=== PATIENT | female | born 1990 | race Caucasian/White ===

== ENCOUNTER 2018-04-22 18:30 | Inpatient (IN) | payer BC ==
[2018-04-22] MEDS ORDERED: Lactated Ringers 1,000 ML IV SCH ×2 (20:15→21:00)
[2018-04-22] MEDS ORDERED: Carboprost Tromethamine 250 MCG/1 ML Amp IM PRN ×2 (20:55)
[2018-04-22] MEDS ORDERED: Methylergonovine 0.2 MG/1 ML Amp IM PRN (20:55)
[2018-04-22] MEDS ORDERED: Zolpidem 5 MG Tab PO PRN (20:55)
[2018-04-22] MEDS ORDERED: Misoprostol 400 MCG (4 X 100 MCG TAB) RECTAL PRN ×2 (20:55)
[2018-04-22] MEDS ORDERED: Lidocaine 1% 30 ML SDV INJECT PRN (20:55)
[2018-04-22] MEDS ORDERED: Simethicone 80 MG Tab.Chew PO PRN (20:55)
[2018-04-22] MEDS ORDERED: Sodium Chloride 0.9% 10 ML Syringe FLUSH PRN (20:55)
[2018-04-22] MEDS ORDERED: Acetaminophen 325 MG Tab PO PRN (20:55)
[2018-04-22] MEDS ORDERED: Tranexamic Acid 1,000 MG in Sodium Chloride 0.9% 100 ML IV PRN ×4 (20:55)
[2018-04-22] MEDS ORDERED: Ondansetron 4 MG/2 ML SDV IV PRN (20:55)
[2018-04-22] MEDS ORDERED: Oxytocin 10 Units/1 ML SDV IM PRN (20:55)
[2018-04-22] MEDS ORDERED: Lactated Ringers 500 ML IV ONE (20:55)
[2018-04-22] MEDS ORDERED: Benzocaine/Menthol 20%-0.5% Spray 56 GM Canister TOP PRN (20:55)
[2018-04-22] MEDS ORDERED: Oxytocin/Normal Saline 30 UNIT/500 ML BAG IV SCH (21:00)
[2018-04-22] MEDS: Oxytocin/Normal Saline 30 UNIT/500 ML BAG IV SCH (21:31)
[2018-04-22] MEDS ORDERED: Bupivacaine 0.75%/D5W 2 ML Amp ONE (22:52)
[2018-04-22] MEDS ORDERED: fentaNYL 100 MCG/2 ML SDV ONE (22:53)
[2018-04-22] MEDS ORDERED: EPINEPHrine 1 MG/ML SDV ONE (22:53)
--- NOTE | 2018-04-22 23:27 | PCM.PRNOTE ---
- Free Text/Narrative Note: Requested to provide analgesia to full term patient in severe pain. Upon entering the room, patient is supine in bed complaining of severe abdominal/ pelvic pain and discomfort. Procedure was discussed with patient including adverse outcomes and expectations. Pt consented to analgesia, SAB/IT. Pt placed into a sitting position. Landmarks for SAB/IT were identified and marked. Hands were washed and appropriate PPE was applied. Back was prepped with betadine x3. A sterile, transparent, fenestrated drape was applied. Excess betadine was removed. Using 3 mL of a 1% lidocaine solution, a skin wheel was placed at the L3/L4 interspace. A 24 ga (4 inch) Pencan spinal needle was inserted until positive for CSF. Negative for heme or paresthesias. Injected fentanyl 30 mcg, sufentanil 25 mcg, and 12 mg of a 0.75% bupivacaine solution with an epi wash. Pt was placed left lateral position for approximately 20 minutes. There were zero complications or adverse outcomes. Will continue to monitor. Procedure Date & Time: 04/22/18 [id number]
--- NOTE | 2018-04-23 00:19 | HP ---
CHIEF COMPLAINT: "I'm in labor and my water broke." HISTORY OF PRESENT ILLNESS: Mrs. Alberto is a 27-year-old, 2, para 0-1-0- 0, female, last menstrual period 07/27/2017, EDC 05/03/2018, EGA 38 and 3/7 weeks' gestation, which is consistent with 1st trimester ultrasound and last menstrual period. She had a high-risk because she has had a previous delivery of twin at 22 weeks' gestation. She was diagnosed with incompetent cervix and had a cerclage done early 2nd trimester and also was on 17 hydroxyprogesterone caproate from 16 weeks until 36 weeks. She states for the past 3 weeks, she has been dilated to 2 once her cerclage was removed at 35 weeks' gestation. She states that she was at home walking around tonight at around 5:00 p.m., and she started leaking fluid. She is having some contractions. She denies any nausea, vomiting, or diarrhea. No fever or chills. No hematochezia, hematemesis, or hematuria. No dysuria, frequency, or urgency with urination. No leg pain, leg edema, or back pain. She is having some abdominal discomfort from the contractions, but they are mild at this point. On admission, she was noted to be 4 to 5 cm dilated, 80% effaced, -2 station. PAST MEDICAL HISTORY: She has no history of anemia, asthma, cancer, diabetes, hypertension, heart disease, seizure disorder, thyroid disorder, thromboembolic disease, breast lesions, or lung problems. FAMILY HISTORY: Positive for hypertension and some distant relatives with some cancer, but no genetic abnormalities in the family. No history of diabetes, heart disease, seizure disorder, lung or kidney problems. SOCIAL HISTORY: She denies any tobacco use, alcohol use, or illicit drug use. She lives in [place] with her , Jonnie. 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 PAST SURGICAL HISTORY: Cervical cerclage, early 2nd trimester. ALLERGIES: Amoxicillin with hives. MEDICATIONS: 1. vitamins. 2. Metamucil p.r.n. OBSTETRICAL HISTORY: On 01/26/2017 at 22 and 5/7 weeks' gestation. She had vaginal spontaneous delivery of twins, 1 boy and 1 girl. This was shortly after she was transferred from [place]. Baby A girl weighed 360 g. Baby B boy weighed 440 g. Both had scores of 1 at 1 minute, 1 at 5 minutes and shortly thereafter. LABORATORY DATA: Blood type O negative, antibody screen positive. I am guessing this is from [facility]. We will find out if it is not from that. Rubella immune. RPR nonreactive. Hepatitis B surface antigen nonreactive. HIV nonreactive. Hepatitis C antibody nonreactive. Group B strep vaginal culture positive. They were unable to isolate organism for susceptibilities, so she needs vancomycin because of her amoxicillin allergy. REVIEW OF SYSTEMS: All pertinent positive and negative review of systems per HPI. All other systems reviewed are negative. Ten point review of systems discussed with the patient. She has no issues. All other issues in the HPI. OBJECTIVE: General: Well-developed, well-nourished female, in no acute distress. Vital signs: Stable. Afebrile. HEENT: Unremarkable. Neck: Supple without adenopathy. No thyromegaly. Lungs: Clear to auscultation. No wheezing, rhonchi, or rales noted. Cardiovascular: Regular rate and rhythm without murmurs. Abdomen: Soft, gravid, nontender. Fundal height 38 cm. heart tones in the 130s to 140s, reactive strip, category 1 strip. Contractions anywhere from 3 to 5 minutes apart. Genitourinary: Cervix is 5 cm dilated. There is clear fluid noted to be leaking. There is a forebag noted. This is ruptured with an amnio hook with some more clear fluid noted, 80% effaced, -2 station, mid position, vertex presentation. Extremities: No edema, erythema, or tenderness noted. ASSESSMENT: 1. A 38 and 3/7 weeks' intrauterine . 2. Spontaneous rupture of membranes, clear fluid. 3. Active labor. 4. History of incompetent cervix. 5. History of delivery of twins in the past. She was on 17 hydroxyprogesterone caproate until 36 weeks' gestation. 6. Cerclage removal at 35 weeks' gestation. 7. Group B streptococcus positive with vancomycin being given for prophylaxis. 8. O negative blood type with history of positive antibody screen earlier in the now pending. PLAN: 1. Expect vaginal delivery. 2. We will start Pitocin augmentation as needed. 3. The patient desires intrathecal anesthesia. 4. All questions answered. [facility] /[id number] CHRISTOPHE
[2018-04-23] MEDS: Oxytocin/Normal Saline 30 UNIT/500 ML BAG IV SCH (02:43)
[2018-04-23] MEDS ORDERED: Acetaminophen 325 MG Tab PO PRN (03:20)
[2018-04-23] MEDS ORDERED: oxyCODONE 5 MG Tab PO PRN (03:23)
--- NOTE | 2018-04-23 04:50 | DEL ---
DATE: 04/23/2018 PREDELIVERY DIAGNOSES: 1. Thirty eight and 4/7 weeks' intrauterine . 2. Spontaneous rupture of membranes, clear fluid. 3. Active labor. 4. History of incompetent cervix. 5. Group B Streptococcus vaginal culture positive, treated with vancomycin. 6. O-negative blood type with positive antibody screen. 7. Pitocin augmentation. 8. Deep variable decelerations during second stage labor. POSTOPERATIVE DIAGNOSES: 1. Thirty eight and 4/7 weeks' intrauterine . 2. Spontaneous rupture of membranes, clear fluid. 3. Active labor. 4. History of incompetent cervix. 5. Group B Streptococcus vaginal culture positive, treated with vancomycin. 6. O-negative blood type with positive antibody screen. 7. Pitocin augmentation. 8. Deep variable decelerations during second stage labor. 9. Low vacuum-assisted vaginal delivery of a viable male infant, weighing 6 pounds 14 ounces (3125 g) with scores of 6 at 1 minute and 8 at 5 minutes at 0210 hours on 04/23/2018. 10.Tight nuchal cord x1. PROCEDURE: Low vacuum-assisted vaginal delivery. ESTIMATED BLOOD LOSS: 450 mL. FLUIDS: Crystalloids/LR. DRAINS: None. PATHOLOGY: None. ANESTHESIA: Intrathecal. COMPLICATIONS: Right vaginal sidewall laceration. FINDINGS: Viable male infant, weighing 6 pounds 14 ounces with scores of 6 at 1 minute and 8 at 5 minutes. Very tight nuchal cord. INDICATIONS FOR PROCEDURE: The patient is a 27-year-old 2, para 0-1-0-0 female, who reported to Labor and Delivery at 38 and 3/7 weeks' gestation, dilated to 4 to 5 cm, with spontaneous rupture of membranes, clear fluid. After admission, because of the group B Strep vaginal culture positive, she was given vancomycin 1 g IV, because she was allergic to amoxicillin. She changed to approximately 5 cm couple hours later, so Pitocin augmentation was started. She tolerated the labor quite well. She was afebrile. Vital signs were stable. Once she started noe and becoming uncomfortable and she was 7 cm dilated, intrathecal anesthesia was accomplished. Once the patient got to complete, she was noted to have some deep variable decelerations along with deep variable decelerations while she was pushing. Because the decelerations were becoming a little prolonged, when the head was at a +2 station, I placed a Kiwi vacuum on the vertex. The head was OA, +2 station. With 4 pushes, 4 pulls with the vacuum, with 3 contractions, and with the pressure at 25 cmHg, the head was delivered. There was noted to be a very tight nuchal cord, so tight I could not reduce it, so I just delivered the rest of the infant over a second-degree midline perineal laceration. Once the was delivered, the cord was reduced and released from around the neck. The cord was clamped and cut. The infant was handed off to the nurses in attendance. Cord blood was obtained. The placenta was then delivered by simple expression intact. The labia, vagina, and cervix were inspected. There was noted to be a long right vaginal sidewall laceration and a second-degree midline perineal laceration. These were repaired with 2-0 Vicryl suture and 3-0 Vicryl suture. The rectum was checked and there were no sutures noted. The patient tolerated the entire procedure quite well. All sponges, needle, and instrument counts were correct by the nurse in attendance x2. The patient received vancomycin 1 g on admission for group B Strep vaginal culture positive prophylaxis. The infant did quite well and stayed with his mother, and started breast-feeding. She was given Pitocin IV to help firm the uterus after delivery. She had minimal lochia. No other complications occurred. [facility] /[id number]
[2018-04-23] MEDS: Ibuprofen 800 MG Tab PO PRN ×3 (04:55→23:03)
[2018-04-23] MEDS ORDERED: Prenatal Multivitamin with Calcium/Folic Acid/Iron Tab PO SCH (09:00)
[2018-04-23] MEDS: Docusate Sodium 100 MG Cap PO PRN ×2 (09:25→21:26)
[2018-04-23] MEDS: Ferrous Sulfate 325 MG Tab PO SCH ×2 (09:26→18:07)
[2018-04-23] MEDS: Prenatal Multivitamin with Calcium/Folic Acid/Iron Tab PO SCH (09:26)
[2018-04-23] MEDS: Acetaminophen 325 MG Tab PO PRN ×3 (09:29→21:26)
[2018-04-24] MEDS: Acetaminophen 325 MG Tab PO PRN ×4 (05:56→23:03)
[2018-04-24] MEDS: Prenatal Multivitamin with Calcium/Folic Acid/Iron Tab PO SCH (08:21)
[2018-04-24] MEDS: Ferrous Sulfate 325 MG Tab PO SCH ×2 (08:21→18:25)
--- NOTE | 2018-04-24 10:22 | PN ---
DATE: 04/24/2018 SUBJECTIVE: Sisi is a 27-year-old woman who delivered vaginally early in the morning, yesterday, 04/23/2018. Unfortunately, she did sustain a vaginal wall tear which has been quite painful for her. She is able to ambulate around without too much difficulty, however. is going well. Baby is not coming around and latching on well. OBJECTIVE: Vital Signs: Stable. She is afebrile. General: Sisi is a pleasant 27-year-old woman in no acute distress. Heart: Regular rate and rhythm. No murmurs, rubs, or gallops. ASSESSMENT: 1. day #1, status post vaginal delivery. 2. Second-degree long vaginal sidewall tear. PLAN: Her and her are deciding whether they want to go home today. That would be appropriate for them to be discharged home today if that is their wish. [facility] /[id number]
[2018-04-24] MEDS: Ibuprofen 800 MG Tab PO PRN ×2 (11:37→20:06)
[2018-04-24] MEDS: Docusate Sodium 100 MG Cap PO PRN ×2 (11:39→21:24)
[2018-04-24] MEDS ORDERED: EPINEPHrine 1 MG/ML SDV ONE (15:00)
[2018-04-24] MEDS ORDERED: Bupivacaine 0.75%/D5W 2 ML Amp ONE (15:00)
[2018-04-24] MEDS ORDERED: fentaNYL 100 MCG/2 ML SDV ITHECAL ONE (15:00)
[2018-04-25] MEDS: Ibuprofen 800 MG Tab PO PRN (06:32)
[2018-04-25] MEDS: Prenatal Multivitamin with Calcium/Folic Acid/Iron Tab PO SCH (09:13)
[2018-04-25] MEDS: Docusate Sodium 100 MG Cap PO PRN (09:13)
[2018-04-25] MEDS: Ferrous Sulfate 325 MG Tab PO SCH (09:13)
== END 2018-04-25 13:10 | disposition home or self-care (01) | DRG 560 ==
LOC: DL.OBCHECK 18:30 → DL.OB 19:41 → UNDOADMOB 19:41 → DL.OB 20:56 → OBSVTOIN 04-23 02:10
PROVIDERS: ADMIT Obstetrics & Gynecology; ATTEND Obstetrics & Gynecology
PROC: 10D07Z6 Extraction of Products of Conception, Vacuum, Via Natural or Artificial Opening (ICD-10-PCS; principal; 2018-04-23)
PROC: 0KQM0ZZ Repair Perineum Muscle, Open Approach (ICD-10-PCS; 2018-04-23)
PROC: 3E0S3GC Introduction of Other Therapeutic Substance into Epidural Space, Percutaneous Approach (ICD-10-PCS; 2018-04-23)
DX: O76 Abnormality in fetal heart rate and rhythm complicating labor and delivery (principal); O42.02 Full-term premature rupture of membranes, onset of labor within 24 hours of rupture; Z3A.38 38 weeks gestation of pregnancy; Z37.0 Single live birth; O70.1 Second degree perineal laceration during delivery; O99.824 Streptococcus B carrier state complicating childbirth; O34.33 Maternal care for cervical incompetence, third trimester; Z88.2 Allergy status to sulfonamides; O69.81X0 Labor and delivery complicated by cord around neck, without compression, not applicable or unspecified
CPT/HCPCS: 36415; 36430; 59025; 59300; 59409; 85027; 85460; 86850; 86870; 86900; 86901; A9270-GY; J0171; J2405; J2590; J2790; J3010; J3370; J7050; J7120

== ENCOUNTER 2018-12-22 20:30 | Emergency (ER) | payer BC ==
--- NOTE | 2018-12-22 20:41 | EDM.PDOC ---
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 states started spotting Monday then got heavier since Monday at pad not soaked Q 2 hours. not getting better and no cramps. [id number] (miscarriage). 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 Fatima Social & Family History - Family History Family Medical History: Noncontributory - Caffeine Use Caffeine Use: Reports: Coffee ED ROS GENERAL - Review of Systems Review Of Systems: ROS reveals no pertinent complaints other than HPI. ED EXAM - Physical Exam Exam: See Below Exam Limited By: No Limitations General Appearance: Alert, WD/WN, No Apparent Distress. No: Active Emesis Ears: Hearing Grossly Normal Throat/Mouth: Normal Voice, No Airway Compromise Head: Atraumatic Neck: Non-Tender, Full Range of Motion Respiratory/Chest: No Respiratory Distress Cardiovascular: Regular Rate, Rhythm GI/Abdominal Exam: Soft Neurological: Alert, Oriented, Normal Cognition, Normal Gait, No Motor/Sensory Deficits Psychiatric: Normal Affect, Normal Mood Skin Exam: Warm, Dry, Normal Color Lymphatic: No Adenopathy Course - Vital Signs Last Recorded V/S: Last Vital Signs Temp 37.5 C 12/22/18 20:40 Pulse 86 12/22/18 20:40 Resp 18 12/22/18 20:40 BP 132/77 12/22/18 20:40 Pulse Ox 100 12/22/18 20:40 - Orders/Labs/Meds Orders: Active Orders 24 hr Category Date Time Status OB Transvaginal [US] Urgent Exams 12/22/18 21:54 Taken Labs: Laboratory Tests 12/22/18 12/22/18 12/22/18 Range/Units 20:48 20:48 20:48 WBC 8.4 (5.0-10.0) 10^3/uL RBC 4.67 (4.2-5.4) 10^6/uL Hgb 12.5 D (12.0-16.0) g/dL Hct 38.9 (37.0-47.0) % MCV 83.3 D (80-100) fL MCH 26.8 L (27.0-34.0) pg MCHC 32.1 L (33.0-35.0) g/dL Plt Count 300 (150-450) 10^3/uL Neut % (Auto) 51.4 (42.2-75.2) % Lymph % (Auto) 39.3 (20.5-50.1) % [place] % (Auto) 8.2 H (2-8) % Eos % (Auto) 0.7 L (1.0-3.0) % Baso % (Auto) 0.4 (0.0-1.0) % Add Manual Diff Yes Neutrophils % (Manual) 48 (42-75) % Lymphocytes % (Manual) 48 (20-50) % Monocytes % (Manual) 3 (2-8) % Eosinophils % (Manual) 1 (1-3) % Sodium 137 (135-145) mmol/L Potassium 3.5 L (3.6-5.0) mmol/L Chloride 102 (101-111) mmol/L Carbon Dioxide 24.0 (21.0-31.0) mmol/L Anion Gap 14.5 BUN 9 (7-18) mg/dL Creatinine 0.6 (0.6-1.3) mg/dL Est Cr Clr Drug Dosing 134.54 mL/min Estimated GFR (MDRD) > 60 BUN/Creatinine Ratio 15.00 Glucose 67 L (74-105) mg/dL Calcium 9.3 (8.4-10.2) mg/dl Total Bilirubin 0.8 (0.2-1.0) mg/dL AST 21 (10-42) IU/L ALT 15 (10-60) IU/L Alkaline Phosphatase 83 (42-121) IU/L Total Protein 8.1 (6.7-8.2) g/dl Albumin 4.3 (3.2-5.5) g/dl Globulin 3.8 Albumin/Globulin Ratio 1.13 HCG, Quant > 1359 H (0-25) mIU/ml Beta HCG, Quant 23777 mIU/ml Meds: Medications Discontinued Medications Generic Name Dose Route Start Last Admin Trade Name Ari PRN Reason Stop Dose Admin Sodium Chloride 1,000 mls @ 500 mls/hr 12/22/18 20:43 12/22/18 20:48 Normal Saline IV 12/22/18 22:42 500 mls/hr .BOLUS ONE Administration - Re-Assessments/Exams Free Text/Narrative Re-Assessment/Exam: 12/23/18 00:07 results discussed with pt who is fine presently Departure - Departure Time of Disposition: 00:07 Disposition: Home, Self-Care 01 Condition: Good Clinical Impression: First trimester bleeding - Discharge Information Instructions: Vaginal Bleeding During , First Trimester Forms: ED Department Discharge Additional Instructions: 1) rest and avoid bending straining lifting 2) follow up with family doctor Monday 3) recheck if there is any change or concern - My Orders Last 24 Hours: My Active Orders 12/22/18 21:54 OB Transvaginal [US] Urgent - Assessment/Plan Last 24 Hours: My Active Orders 12/22/18 21:54 OB Transvaginal [US] Urgent
[2018-12-22] MEDS ORDERED: Sodium Chloride 0.9% 1,000 ML IV ONE (20:43)
[2018-12-22 21:17] LABS: ANION GAP 14.5; CHLORIDE,CL 102 mmol/L (101-111); SODIUM,NA 137 mmol/L (135-145)
== END 2018-12-23 00:25 | disposition home or self-care (01) ==
LOC: DL.ED 20:30
DX: O20.8 Other hemorrhage in early pregnancy (principal); Z88.1 Allergy status to other antibiotic agents; Z79.899 Other long term (current) drug therapy; Z87.59 Personal history of other complications of pregnancy, childbirth and the puerperium; Z3A.01 Less than 8 weeks gestation of pregnancy
CPT/HCPCS: 36415; 76817; 80053; 84702; 85025; 96365; 96366; 99284; J7030

== ENCOUNTER 2018-12-23 15:21 | Emergency (ER) | payer BC ==
[2018-12-23] MEDS ORDERED: Misoprostol 100 MCG Tab PO ONE ×2 (15:22→18:20)
--- NOTE | 2018-12-23 16:17 | EDM.PDOC ---
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 She states bleeding on 12/22/18 began to be brighter and increased in amount. She states she was seen in the ER last night and an ultrasound was performed. Still showed an intrauterine of 6 weeks, 3 days with no heartbeat. Pt states LMP was 10/08/18. Patient states she also lost twins a few years ago at 22 weeks. Patient states she was in [employer] today with her and had a gush of blood. She states she soaked the first pad within 5 min, passed golf ball size clot. Denies seeing any tissue. Denies fever, chills, N/V, dizziness. Does admit to some on and off cramping. Onset: Gradual Abdomen Pain Score (Numeric/FACES): 2 - Related Data Allergies Allergy/AdvReac Type Severity Reaction Status Date / Time amoxicillin Allergy Cannot Verified 12/23/18 15:59 Remember Home Meds: Home Meds Vit with Ca/FA/Iron [ Plus Iron] 1 tab PO DAILY 04/22/18 [ History] Docusate Sodium [Colace] 100 mg PO BID PRN #28 cap 04/25/18 [Rx] Ibuprofen [Motrin] 800 mg PO Q8H PRN tablet 04/25/18 [Rx] Ferrous Sulfate [Iron] 325 mg PO DAILY 12/23/18 [History] Past Medical History HEENT History: Reports: Other (See Below) Other HEENT History: glasses Cardiovascular History: Reports: None Respiratory History: Reports: None Gastrointestinal History: Reports: None Genitourinary History: Reports: None PACK TRAIN DRIVER History: Reports: Spontaneous , Other (See Below) Other PACK TRAIN DRIVER History: 22 week gestation twin loss Musculoskeletal History: Reports: None Neurological History: Reports: None Psychiatric History: Reports: None Endocrine/Metabolic History: Reports: None Hematologic History: Reports: Anemia Immunologic History: Reports: None Oncologic (Cancer) History: Reports: None Dermatologic History: Reports: Eczema - Infectious Disease History Infectious Disease History: Reports: None - Past Surgical History Head Surgeries/Procedures: Reports: None Female Surgical History: Reports: Other (See Below) Other Female Surgeries/Procedures: cerclauge with this removed at [address] Fatima Social & Family History - Family History Family Medical History: Noncontributory - Tobacco Use Smoking Status *Q: Former Smoker Years of Tobacco use: 2 Packs/Tins Daily: 0.5 Used Tobacco, but Quit: Yes Month/Year Tobacco Last Used: september Second Hand Smoke Exposure: No - Caffeine Use Caffeine Use: Reports: Coffee, Soda - Recreational Drug Use Recreational Drug Use: No ED ROS GENERAL - Review of Systems Review Of Systems: ROS reveals no pertinent complaints other than HPI. ED EXAM - Physical Exam Exam: See Below Exam Limited By: No Limitations General Appearance: Alert, WD/WN, No Apparent Distress Eye Exam: Bilateral Eye: EOMI, Normal Inspection Ears: Normal External Exam, Hearing Grossly Normal Nose: Normal Inspection Throat/Mouth: Normal Inspection, Normal Voice, No Airway Compromise Head: Atraumatic, Normocephalic Neck: Normal Inspection, Supple, Non-Tender, Full Range of Motion Respiratory/Chest: No Respiratory Distress, Lungs Clear, Normal Breath Sounds, No Accessory Muscle Use, Chest Non-Tender Cardiovascular: Normal Peripheral Pulses, Regular Rate, Rhythm, No Edema, No Gallop, No JVD, No Murmur, No Rub GI/Abdominal Exam: Normal Bowel Sounds, Soft, No Organomegaly, No Distention, No Abnormal Bruit, No Mass, Tender Rectal Exam: Deferred (Female) Exam: Other (performed by Dr. Rosas) Back Exam: Normal Inspection, Full Range of Motion, NT Extremities: Normal Inspection, Normal Range of Motion, Non-Tender, Normal Capillary Refill, No Pedal Edema Neurological: Alert, Oriented, CN II-XII Intact, Normal Cognition, Normal Gait, Normal Reflexes, No Motor/Sensory Deficits Psychiatric: Normal Affect, Normal Mood, Anxious, Tearful Skin Exam: Warm, Dry, Intact, Normal Color, No Rash Lymphatic: No Adenopathy Course - Vital Signs Last Recorded V/S: Last Vital Signs Temp 98.3 F 12/23/18 15:43 Pulse 98 12/23/18 15:43 Resp 16 12/23/18 15:43 BP 135/73 12/23/18 15:43 Pulse Ox 100 12/23/18 15:43 - Orders/Labs/Meds Labs: Laboratory Tests 12/23/18 12/23/18 12/23/18 Range/Units 16:45 16:45 18:34 WBC 6.6 (5.0-10.0) 10^3/uL RBC 4.47 (4.2-5.4) 10^6/uL Hgb 12.0 (12.0-16.0) g/dL Hct 37.2 (37.0-47.0) % MCV 83.2 (80-100) fL MCH 26.8 L (27.0-34.0) pg MCHC 32.3 L (33.0-35.0) g/dL Plt Count 303 (150-450) 10^3/uL Neut % (Auto) 64.4 (42.2-75.2) % Lymph % (Auto) 27.7 (20.5-50.1) % [place] % (Auto) 7.0 (2-8) % Eos % (Auto) 0.6 L (1.0-3.0) % Baso % (Auto) 0.3 (0.0-1.0) % Sodium 136 (135-145) mmol/L Potassium 3.9 (3.6-5.0) mmol/L Chloride 104 (101-111) mmol/L Carbon Dioxide 23.0 (21.0-31.0) mmol/L Anion Gap 12.9 BUN 7 (7-18) mg/dL Creatinine 0.6 (0.6-1.3) mg/dL Est Cr Clr Drug Dosing 134.54 mL/min Estimated GFR (MDRD) > 60 BUN/Creatinine Ratio 11.66 Glucose 101 (74-105) mg/dL Calcium 8.9 (8.4-10.2) mg/dl Total Bilirubin 1.2 H (0.2-1.0) mg/dL AST 19 (10-42) IU/L ALT 15 (10-60) IU/L Alkaline Phosphatase 70 (42-121) IU/L Total Protein 7.3 (6.7-8.2) g/dl Albumin 4.0 (3.2-5.5) g/dl Globulin 3.3 Albumin/Globulin Ratio 1.21 Blood Type (Referred) O neg Blood Type O NEGATIVE Gel Antibody Screen Negative Rhogam Indicated Yes Blood Bank Comment Not Reportable Meds: Medications Discontinued Medications Generic Name Dose Route Start Last Admin Trade Name Ari PRN Reason Stop Dose Admin Ketorolac Tromethamine 60 mg 12/23/18 18:29 12/23/18 18:38 Toradol IM 12/23/18 18:30 60 mg ONETIME ONE Administration Misoprostol 200 mcg 12/23/18 18:20 12/23/18 18:33 Cytotec PO 12/23/18 18:21 200 mcg ONETIME ONE Administration Misoprostol Confirm 12/23/18 18:26 12/23/18 18:35 Cytotec Administered 12/23/18 18:27 Not Given Dose 400 mcg .ROUTE .K-MED ONE - Radiology Interpretation Free Text/Narrative:: US from 12/22/18: IMPRESSION: 1. Well-defined pole noted within the fundus of the uterus corresponding to an early intrauterine of approximately 6 weeks 3 days. 2. I could not document cardiac activity at this point and a follow up study in one week is suggested to evaluate for possible intrauterine demise Thank you for allowing us to participate in the care of your patient. Dictated and Authenticated by: Cm Mcnamara MD 12/22/2018 11:46 PM Central Time ([place] & [place]) See rad report - Re-Assessments/Exams Free Text/Narrative Re-Assessment/Exam: 12/25/18 01:40 Dr. Rosas was called to consult with the patient. He presented to the ER and performed the vaginal exam. Tissue/fetus was found outside the cervix (as stated by Dr. Rosas). This was sent to pathology. Departure - Departure Time of Disposition: 20:15 Disposition: Home, Self-Care 01 Condition: Fair Clinical Impression: Complete - Discharge Information *PRESCRIPTION DRUG MONITORING PROGRAM REVIEWED*: No *COPY OF PRESCRIPTION DRUG MONITORING REPORT IN PATIENT LANDON: No Instructions: Miscarriage, [id number] Referrals: PCP,None [Ordering Only Provider] - Forms: ED Department Discharge Additional Instructions: Drink plenty of fluids Take Cytotec in the morning Follow up with Dr. Reese
[2018-12-23 17:10] LABS: ANION GAP 12.9; CHLORIDE,CL 104 mmol/L (101-111); SODIUM,NA 136 mmol/L (135-145)
[2018-12-23] MEDS ORDERED: Misoprostol 400 MCG (4 X 100 MCG TAB) ONE (18:26)
[2018-12-23] MEDS ORDERED: Ketorolac 30 MG/ML SDV IM ONE (18:29)
--- NOTE | 2018-12-24 01:37 | HP ---
CHIEF COMPLAINT: "I am having a miscarriage." HISTORY OF PRESENT ILLNESS: Ms. Alberto is a 28-year-old 3, para 1-1-0-1 female who reports to the emergency department at [facility] in [facility] because of active bleeding with blood clots and pain in her pelvis. She was seen yesterday in the emergency department here and was noted to have a 6 week 3 day fetus with no cardiac activity, and she was planning on passing this on her own, but then the bleeding got a lot worse and she just could not tolerate it, so came back into the emergency department today. She denies any nausea, vomiting, or diarrhea. No fever or chills. No hematochezia, hematemesis, or hematuria. No dysuria, frequency, or urgency with urination. No leg pain, leg edema, or back pain. She is having pain in the pelvis that comes and goes, "like contractions." She is having bleeding with blood clots noted. She denies any dizziness or lightheadedness. PAST MEDICAL HISTORY: She has history of eczema and anemia. She denies any cancer, diabetes, hypertension, heart disease, seizure disorder, thyroid disorder, thromboembolic disease, breast lesions, or blood transfusions. FAMILY HISTORY: Positive for hypertension in distant relatives with cancer. No diabetes, seizure disorder, or thyroid disorder. SOCIAL HISTORY: She denies any tobacco use, alcohol use, or illicit drug use. She is to Jonnie Alberto, and they live in [place]. PAST SURGICAL HISTORY: She has a cervical cerclage placed in the second trimester of her second . OBSTETRICAL HISTORY: Her first , 01/26/2017, delivery of twins at 22- 5/7th weeks' gestation. Baby A was a boy, 360 g with Apgars of 1 and 1. Baby B was a girl, weighing 440 g with Apgars of 1 and 5. Both shortly after delivery. MEDICATIONS: vitamins, Colace, ibuprofen, and ferrous sulfate. ALLERGIES: Amoxicillin causes hives. SOCIAL HISTORY: She denies any tobacco use, alcohol use, or illicit drug use. She lives in [place] with her , Jonnie. LABORATORY DATA: Blood type is O-negative. CBC: WBC 6.6, hemoglobin 12.0, hematocrit 37.2, and platelet count 303,000. Potassium 3.9, glucose 101. On 12/22/2018, WBC 8.4, hemoglobin 12.5, hematocrit 38.9, and platelet count 300,000. Potassium 3.5, glucose 67. Quantitative hCG 19,719. Ultrasound on 12/22/2018: 6-3/7 weeks' intrauterine with no cardiac activity seen. Ultrasound done today on 12/23/2018 shows an empty uterus. No intrauterine seen. REVIEW OF SYSTEMS: All pertinent positive and negative review of systems per the HPI. All other systems reviewed are negative. A 10-point review of systems discussed with the patient. She has no issues other than what was in the HPI. OBJECTIVE: General: Well-developed, well-nourished female in no acute distress. Vital Signs: Stable. Afebrile. Blood pressure 135/73, pulse 98, respirations 16, temperature 98.3, and O2 saturation 100%. HEENT: Unremarkable. Neck: Supple, without adenopathy. No thyromegaly. Lungs: Clear to auscultation. No wheezing, rhonchi, or rales noted. Cardiovascular: Regular rate and rhythm without murmurs. Abdomen: Soft; slightly tender in the pelvis but no rigidity, rebound tenderness, or peritoneal signs noted. Back: No CVA tenderness. Genitourinary: She has large amounts of blood and blood clots in the vagina. These are all cleansed. There is tissue at the opening of the cervix. This is grasped with a ring forceps and teased out slowly, and the entire tissue that is teased out is sent to pathology. After this is removed, the cervix shows minimal amounts of bleeding and closed up quite nicely. The entire vagina is cleansed and dried with minimal bleeding afterwards. Bimanual examination: No masses, fullness, or tenderness noted. She has approximately an 8-week size uterus noted. Extremities: No edema, erythema, or tenderness noted. ASSESSMENT: 1. First trimester spontaneous - complete. 2. History of delivery in the past. 3. History of incompetent cervix in the past. 4. O-negative blood type. PLAN: 1. The patient to get RhoGAM 300 mcg before leaving in the emergency department. 2. Cytotec 200 mcg given orally before she leaves the hospital, then she will take this again tomorrow morning when she wakes. 3. Toradol 60 mg IM now. 4. Ibuprofen and Tylenol at home p.r.n. for cramping and discomfort. 5. The patient to follow up with Dr. Reese within the next 2 weeks unless she has issues before then, she will contact our office sooner. 6. All questions answered. [facility] /[id number]
== END 2018-12-23 20:15 | disposition home or self-care (01) ==
LOC: DL.ED 15:21
DX: O03.9 Complete or unspecified spontaneous abortion without complication (principal); Z79.899 Other long term (current) drug therapy; Z87.891 Personal history of nicotine dependence; Z87.59 Personal history of other complications of pregnancy, childbirth and the puerperium
CPT/HCPCS: 36415; 76817; 80053; 85025; 86850; 86900; 86901; 96372; 99284; A9270; J1885; J2790

== ENCOUNTER 2021-04-16 08:26 | Inpatient (IN) | payer BC ==
--- NOTE | 2021-04-16 08:29 | EDM.PDOC ---
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 /2-0/L1 at 10wks gestation with known demise. History of one spont. Ab 1st tri. and 22wk demise of twin preg. Patient arrives with complaints of increased bleeding, passage of large amount of tissue at home this morning, and did bring it in with her. Now has heavy bleeding and cramping. She has seen Dr. Reese this week on Monday. Pt has documented blood type of O Neg. Onset: Today Duration: Constant Location: Reports: Abdomen, Pelvis Quality: Reports: Ache, Other (Cramping) Severity: Moderate Improves with: Reports: None Worsens with: Reports: None Associated Symptoms: Reports: No Other Symptoms - Related Data Allergies Allergy/AdvReac Type Severity Reaction Status Date / Time amoxicillin Allergy Cannot Verified 04/16/21 08:45 Remember Home Meds: Home Meds Vit with Ca/FA/Iron [ Plus Iron] 1 tab PO DAILY 04/22/18 [History] Docusate Sodium [Colace] 100 mg PO BID PRN #28 cap 04/25/18 [Rx] Past Medical History HEENT History: Reports: Other (See Below) Other HEENT History: glasses Cardiovascular History: Reports: None Respiratory History: Reports: None Gastrointestinal History: Reports: None Genitourinary History: Reports: None FURNITURE DESIGNER History: Reports: (*Blood Type O Negative), Spontaneous , Other (See Below) : 4 Para: 1 LMP (Approximate): (10 weeks as of 04/16/21) Other FURNITURE DESIGNER History: 22 week gestation twin loss Musculoskeletal History: Reports: None Neurological History: Reports: None Psychiatric History: Reports: None Endocrine/Metabolic History: Reports: None Hematologic History: Reports: Anemia Immunologic History: Reports: None Oncologic (Cancer) History: Reports: None Dermatologic History: Reports: Eczema - Infectious Disease History Infectious Disease History: Reports: None - Past Surgical History Head Surgeries/Procedures: Reports: None Female Surgical History: Reports: Other (See Below) Other Female Surgeries/Procedures: cerclauge with this removed at [address] Fatima Social & Family History - Family History Family Medical History: No Pertinent Family History - Caffeine Use Caffeine Use: Reports: Coffee, Soda - Living Situation & Occupation Living situation: Reports: , with Family ED ROS GENERAL - Review of Systems Review Of Systems: Comprehensive ROS is negative, except as noted in HPI. ED EXAM - Physical Exam Exam: See Below Exam Limited By: No Limitations General Appearance: Alert, WD/WN, No Apparent Distress Respiratory/Chest: No Respiratory Distress, Lungs Clear Cardiovascular: Regular Rate, Rhythm, No Edema GI/Abdominal Exam: Normal Bowel Sounds, Soft, Tender (mild suprapubic tenderness). No: Guarding, Rigid, Rebound Rectal Exam: Deferred (Female) Exam: Normal External Exam, Tissue Present in Cervix/Vagina (Large clots and blood cleansed from vaginal vault, small strand of sac-like tissue protruding from cerivx was removed gently with ring forceps.), Vaginal Bleeding Back Exam: Normal Inspection Extremities: Normal Inspection Neurological: Alert, Oriented, No Motor/Sensory Deficits Psychiatric: Normal Mood Skin Exam: Warm, Dry, Intact, Normal Color, No Rash Course - Vital Signs Last Recorded V/S: Last Vital Signs Temp 98.2 F 04/16/21 08:55 Pulse 85 04/16/21 08:55 Resp 16 04/16/21 08:55 BP 129/75 04/16/21 08:55 Pulse Ox 99 04/16/21 08:55 - Orders/Labs/Meds Orders: Active Orders 24 hr Category Date Time Status OB 1st Tri Sgl 1st Gest [US] Stat Exams 04/16/21 08:38 Ordered AB SCREEN (GEL) [BBK] Stat Lab 04/16/21 08:50 Results RH IMMUNE GLOBULIN [BBK] Stat Lab 04/16/21 08:50 Results RHOGAM, MISCARRIAGE [RHIG WORKUP, MISCARRIAGE] [BBK] Lab 04/16/21 08:50 Results Stat Labs: Laboratory Tests 04/16/21 04/16/21 04/16/21 Range/Units 08:50 08:50 08:50 WBC 9.2 (5.0-10.0) 10^3/uL RBC 4.49 (4.2-5.4) 10^6/uL Hgb 11.1 L (12.0-16.0) g/dL Hct 35.1 L (37.0-47.0) % MCV 78.2 L D (80-100) fL MCH 24.7 L (27.0-34.0) pg MCHC 31.6 L (33.0-35.0) g/dL Plt Count 296 (150-450) 10^3/uL Neut % (Auto) 71.1 (42.2-75.2) % Lymph % (Auto) 20.3 L (20.5-50.1) % Converse % (Auto) 7.6 (2-8) % Eos % (Auto) 0.8 L (1.0-3.0) % Baso % (Auto) 0.2 (0.0-1.0) % HCG, Quant 6575 H (0-6) mIU/mL Blood Type (Referred) O neg Gel Antibody Screen Negative Rhogam Indicated Yes Meds: Medications Discontinued Medications Generic Name Dose Route Start Last Admin Trade Name Freq PRN Reason Stop Dose Admin Hydrocodone Bitart/Acetaminophen 1 tab 04/16/21 09:15 04/16/21 09:22 Acetaminophen/Hydrocodone 325-10 Mg Tab PO 04/16/21 09:16 1 tab ONETIME ONE Administration Ketorolac Tromethamine 30 mg 04/16/21 09:15 04/16/21 09:21 Ketorolac 30 Mg/Ml Sdv IM 04/16/21 09:16 30 mg ONETIME ONE Administration Ondansetron HCl 4 mg 04/16/21 09:16 04/16/21 09:22 Ondansetron 4 Mg Tab.Dis PO 04/16/21 09:17 4 mg ONETIME ONE Administration - Radiology Interpretation Free Text/Narrative:: [facility] [place] [facility] Final Radiology Report Call: [phone] assistance Online chat: [email or web address] Name: RAUL ARCHULETA Age: 30Years F Date: 04/16/2021 SSN: -- : 1990 Study: US OB TRANSVAGINAL Requesting Physician: EMMA CHACON Images: 19 Addl Studies: Provided Clinical History: spont. in progress Contrast: Without Contrast Medium: Contrast Amount: Contrast Method: Page 1 of 2 PROCEDURE INFORMATION: Exam: US , Transvaginal Exam date and time: 04/16/2021 8:50 AM Age: 30 years old Clinical indication: Lmp or gestational age (in weeks): 02/01/21; Other: Bleeding; ; Additional info: Spont. in progress TECHNIQUE: Imaging protocol: Real-time transvaginal obstetrical ultrasound of the maternal pelvis with image documentation. Transvaginal imaging was used for better evaluation of the fetus, adnexa, and/or cervix. COMPARISON: No relevant prior studies available. FINDINGS: Gestation: No evidence of intrauterine gestational sac. There is vascularity within the endometrial cavity consistent with retained products of conception. MATERNAL: Uterus: Thickened inhomogeneous endometrium with associated fluid within the endometrial cavity. Right adnexa: Right ovary measures 2.9 x 1.9 x 2.0 cm. Left adnexa: Left ovary measures 2.5 x 2.1 x 1.7 cm IMPRESSION: 1. No evidence of intrauterine gestational sac. 2. Thickened inhomogeneous endometrium with associated fluid within the endometrial cavity. 3. There is vascularity within the endometrial cavity consistent with retained products of conception. Thank you for allowing us to participate in the care of your patient. RAUL ARCHULETA | Final Radiology Report CONFIDENTIALITY STATEMENT This report is intended only for use by the referring physician, and only in accordance with law. If you received this in error, call [phone]. Page 2 of 2 Dictated and Authenticated by: Obey Martin MD 04/16/2021 9:48 AM Central Time ([place] & [place]) - Re-Assessments/Exams Free Text/Narrative Re-Assessment/Exam: 04/16/21 10:45 Dr. Burgess agrees to consult and consider D&C. Resident Dr. Nesbitt present in ER to evaluate and admit pt to observation. Departure - Departure Time of Disposition: 10:47 (admitted to Dr. Burgess/Dr. Nesbitt) Disposition: Refer to Observation Condition: Good Clinical Impression: Spontaneous , Retained products of conception after miscarriage - Discharge Information Forms: ED Department Discharge Sepsis Event Note (ED) - Focused Exam Vital Signs: Vital Signs Temp Pulse Resp BP Pulse Ox 04/16/21 08:55 98.2 F 85 16 129/75 99 - My Orders Last 24 Hours: My Active Orders 04/16/21 08:38 OB 1st Tri Sgl 1st Gest [US] Stat 04/16/21 08:50 AB SCREEN (GEL) [BBK] Stat RH IMMUNE GLOBULIN [BBK] Stat RHOGAM, MISCARRIAGE [RHIG WORKUP, MISCARRIAGE] [BBK] Stat - Assessment/Plan Last 24 Hours: My Active Orders 04/16/21 08:38 OB 1st Tri Sgl 1st Gest [US] Stat 04/16/21 08:50 AB SCREEN (GEL) [BBK] Stat RH IMMUNE GLOBULIN [BBK] Stat RHOGAM, MISCARRIAGE [RHIG WORKUP, MISCARRIAGE] [BBK] Stat"
[2021-04-16] MEDS ORDERED: Acetaminophen/HYDROcodone 325-10 MG Tab PO ONE (09:15)
[2021-04-16] MEDS ORDERED: Ketorolac 30 MG/ML SDV IM ONE (09:15)
[2021-04-16] MEDS ORDERED: Ondansetron 4 MG Tab.DIS PO ONE (09:16)
--- NOTE | 2021-04-16 09:48 | US ---
PROCEDURE INFORMATION: Exam: US , Transvaginal Exam date and time: 04/16/2021 8:50 AM Age: 30 years old Clinical indication: Lmp or gestational age (in weeks): 02/01/21; Other: Bleeding; ; Additional info: Spont. in progress TECHNIQUE: Imaging protocol: Real-time transvaginal obstetrical ultrasound of the maternal pelvis with image documentation. Transvaginal imaging was used for better evaluation of the fetus, adnexa, and/or cervix. COMPARISON: No relevant prior studies available. FINDINGS: Gestation: No evidence of intrauterine gestational sac. There is vascularity within the endometrial cavity consistent with retained products of conception. MATERNAL: Uterus: Thickened inhomogeneous endometrium with associated fluid within the endometrial cavity. Right adnexa: Right ovary measures 2.9 x 1.9 x 2.0 cm. Left adnexa: Left ovary measures 2.5 x 2.1 x 1.7 cm IMPRESSION: 1. No evidence of intrauterine gestational sac. 2. Thickened inhomogeneous endometrium with associated fluid within the endometrial cavity. 3. There is vascularity within the endometrial cavity consistent with retained products of conception.
[2021-04-16] MEDS ORDERED: Lactated Ringers 1,000 ML IV SCH ×2 (11:00→13:00)
[2021-04-16] MEDS ORDERED: Misoprostol 400 MCG (4 X 100 MCG TAB) RECTAL ONE (12:56)
[2021-04-16] MEDS ORDERED: Oxytocin 10 Units/1 ML SDV IM PRN (12:56)
[2021-04-16] MEDS ORDERED: Misoprostol 400 MCG (4 X 100 MCG TAB) RECTAL PRN (13:11)
[2021-04-16] MEDS ORDERED: Ondansetron 4 MG/2 ML SDV IV ONE (15:00)
[2021-04-16] MEDS ORDERED: Dexamethasone 4 MG/ML SDV IV ONE (15:00)
[2021-04-16] MEDS ORDERED: Propofol 200 MG/20 ML SDV IV ONE (15:00)
[2021-04-16] MEDS ORDERED: fentaNYL 100 MCG/2 ML SDV IV ONE (15:00)
[2021-04-16] MEDS ORDERED: Lactated Ringers 1,000 ML IV ONE (15:00)
[2021-04-16] MEDS ORDERED: Midazolam 1 MG/ML 2 ML SDV IV ONE (15:00)
[2021-04-16] MEDS ORDERED: Ketorolac 30 MG/ML SDV IVPUSH ONE (15:00)
--- NOTE | 2021-04-16 15:00 | HP ---
SUBJECTIVE: The patient is a 30-year-old, 4, para who is approximately 9 weeks' gestation. The patient comes in to the emergency department with concerns of spontaneous . The patient was seen in clinic on 04/06/2021 with concerns for a miscarriage. At that time, ultrasound measured only about 6 weeks' gestation and no heart tone and yolk sac were present. At that time, a discussion was had with patient regarding options of watchful waiting versus a D and C. At that time, she preferred to continue with watchful waiting and return if concerning signs and symptoms occurred. The patient presented today to the emergency department due to increased vaginal bleeding noted this morning. She states it was initially more of a dark red blood trickle, but she passed a few clots this morning with subsequent bright red bleeding. The patient does have a known history of spontaneous with a hemorrhage requiring D and C previously. Due to this, the patient presented to the emergency department for further evaluation. She also has associated cramping that is moderate in degree. OBJECTIVE: Vital Signs: Temp 98.4, HR 70 BPM, BP 116/56, respiratory rate 14 breaths per minute, oxygen saturation 100% on room air. Appearance: The patient is not in acute distress. Sitting comfortably in bed. Mildly pale appearing. HEENT: Within normal limits. Lungs: Clear to auscultation bilaterally. Heart: Regular rate and rhythm. No murmurs noted. Abdomen: Soft, nontender, nondistended. Uterus not palpable. Pelvic: Scant bright red blood noted on vaginal pad. Extremities: No peripheral edema noted. Skin: Slightly pale appearing. LABORATORY VALUES: Hemoglobin 11.1, hematocrit 35.1, platelet count 296. HCG quant 6575. This has decreased from 10,661 on 04/12/2021 and 13,559 on 04/07/2021. COVID negative. ASSESSMENT: The patient is a 30-year-old, 4, para presenting with around 9 weeks' gestation for a spontaneous . PLAN: We will admit the patient to observation in preparation for a suction D and C due to spontaneous . Orders placed. The patient will need doxycycline 200 mg 30 minutes prior to procedure. Updated H and P is also in chart. The patient was seen and evaluated by myself and Dr. Basil Werner. Assessment and plan is under advisement of Dr. Werner. [facility] /[id number]
[2021-04-16] MEDS ORDERED: Oxytocin/Normal Saline 30 UNIT/500 ML BAG ONE (15:05)
[2021-04-16] MEDS ORDERED: Silver Nitrate Applicator Each ONE (15:05)
[2021-04-16] MEDS ORDERED: Ferric Subsulfate Topical Soln 8 GM (8 ML) Bottle ONE (15:05)
[2021-04-16] MEDS ORDERED: Doxycycline 200 MG in Sodium Chloride 0.9% 100 ML IV ONE (16:00)
[2021-04-16] MEDS ORDERED: Doxycycline Monohydrate 100 MG Cap PO ONE (16:00)
[2021-04-16] MEDS ORDERED: Lidocaine 0.5% with EPINEPHrine 1:200,000 50 ML MDV INJECT ONE (16:30)
[2021-04-16] MEDS ORDERED: Oxytocin/Normal Saline 30 UNIT/500 ML BAG IV SCH (16:45)
[2021-04-16] MEDS ORDERED: Acetaminophen 500 MG Tab PO ONE (17:19)
[2021-04-16] MEDS ORDERED: Ondansetron 4 MG/2 ML SDV IVPUSH ONE (18:28)
[2021-04-16] MEDS ORDERED: Oxytocin/Normal Saline 30 UNIT/500 ML BAG IV ONE (20:39)
--- NOTE | 2021-04-16 23:07 | DISCH ---
ADMITTING DIAGNOSES: 1. Spontaneous . 2. History of miscarriage status post D and C x2. 3. History of demise in twin infants at 21 weeks gestation. 4. Rh negative. 5. Vaginal bleeding. DISCHARGE DIAGNOSES: 1. Spontaneous . 2. History of miscarriage status post D and C x2. 3. History of demise in twin infants at 21 weeks gestation. 4. Rh negative. 5. Vaginal bleeding. 6. Spontaneous , status post suction D and C. HISTORY OF PRESENT ILLNESS: The patient is a 30-year-old female who presented to the ER today for concerns of increased vaginal bleeding and medical management of spontaneous . Patient states that bleeding and spotting started around 04/05/2021 and saw her PCP. The patient was given options at that time whether to proceed with medical management of miscarriage versus presenting for evaluation and possible consultation for suction D and C. At that time, patient wished if possible to continue watchful waiting and expectant management of miscarriage at home. This was an acceptable option as patient was between 9 and 6 weeks gestation. Then patient states that when she woke up this morning she had noticed more bleeding and clotting. She had increased cramping and after an episode of cramping, she noticed passage of some tissue and then brisk bleeding ensued. This made patient and her concerned and they decided to present to the emergency department for further evaluation. Please see ER H and P along with admission H and P for further details. SUMMARY OF HOSPITAL COURSE: The patient was admitted to observation and treatment plans were discussed including continued watch in hospital with medical management versus suction D and C. The patient wished to continue with D and C as she has had increased bleeding and has a history of hemorrhage after miscarriage. The patient was then brought to the OR for suction D and C with resolution of brisk vaginal bleeding. The patient tolerated the procedure well immediately postop. The patient was monitored for few hours after the procedure. She was noted to be able to ambulate, tolerate p.o. intake, and urinate without difficulty. The patient denied concerns, had no symptoms for anemia and has continued brisk vaginal bleeding. The patient was re-evaluated and noted to be in stable condition with appropriate option for discharge. OBJECTIVE: Vital Signs: HR 75 bpm, BP 116/72, SpO2 of 100% on room air. Appearance: The patient is lying comfortably in bed. Lungs: Clear to auscultation bilaterally. Heart: Regular rate and rhythm. Abdomen: Soft, nontender. Pelvis: Scant bleeding. Extremities: No pedal edema noted. Skin: Slightly pale in color, which patient states is baseline. DISCHARGE DISPOSITION: Good, home with significant other. DISCHARGE PLAN: 1. The patient is medically maximized for discharge home status post suction D and C. The patient is to follow up in [address] Reese to discuss results of tissue sample. 2. Discussed with patient routine diagnosis course along with red flag symptoms that would prompt urgent re-evaluation including new onset fever, brisk bleeding, severe pain. Questions answered and the patient and spouse are in agreement with this plan. The patient was seen by myself and under advisement of Dr. Basil Werner. Discharge plan was under advisement of Dr. Werner. [facility] /[id number]
--- NOTE | 2021-04-17 18:12 | OR ---
DATE: 04/16/2021 PREPROCEDURE DIAGNOSIS: Incomplete abortus measuring 6 weeks gestational age. POSTPROCEDURE DIAGNOSIS: Status post suction, dilation, and curettage. PROCEDURE: Cervical dilation and suction, uterine curettage. FINDINGS: Small 8-week size mobile uterus, normal shape and contour, sounding to 9 cm, anteverted, uterus involuted postoperatively. SPECIMEN: Products of conception, collected in saline for chromosomal microarray. ANESTHESIA: MAC and paracervical block. COMPLICATIONS: None. FLUIDS: 400 mL of crystalloid. DRAINS: None. ESTIMATED BLOOD LOSS: 10 mL. INDICATION: Sisi Alberto is a 30-year-old G4, P1-1-2-1, woman who presented to the emergency room with the above conditions. Her hCG quant had been falling and she presented with progressive vaginal bleeding, cervix noted to be dilated. Ultrasound in the emergency room confirmed incomplete . PROCEDURE IN DETAIL: The patient was taken to the operating room, where following patient identification, MAC anesthesia was placed without difficulty and found to be adequate. She was positioned in dorsal lithotomy position, legs placed in a neurologically neutral position using the Yellofins. She received oral doxycycline prior to the procedure for infection prophylaxis. She was prepped and draped with an antiseptic solution in the usual sterile fashion. The patient's bladder was drained with a red rubber catheter using sterile technique for 150 mL. Following surgical time-out with all parties in agreement to proceed, Auvard and Ramirez speculums were placed to visualize the cervix which was grasped anteriorly with a tenaculum. Paracervical block was performed using 0.5% lidocaine with epinephrine, 10 mL injected into the cervical corpus using a spinal needle. The uterus was sounded to a depth of 9 cm, and the cervix appeared open but was gently dilated to a dilation of 12 mm with Hegar dilators. The rigid, curved 12 mm Karman curette was advanced to the fundus gently and connected to the [employer] electric aspirator, and the endometrium was curetted three separate times for return of a moderate amount of white and red tissue until the endometrium felt gritty throughout. The endometrium was then gently curetted with several gentle passes using the Ramirez curette with return of minimal clot. Tenaculum sites became hemostatic with pressure, bleeding from the os was very minimal, and bimanual exam demonstrated an approximately 8-week size, firm, nonboggy uterus. Sponge, needle, and instrument counts were reported as correct x2. The patient tolerated the procedure well and was subsequently transferred to the recovery room in stable condition. [facility] /[id number]
== END 2021-04-16 20:40 | disposition home or self-care (01) | DRG 543 ==
LOC: DL.ED 08:26 → DL.MS 11:36 → OBSVTOIN 12:57
PROVIDERS: ADMIT Student in an Organized Health Care Education/Training Program; ATTEND Student in an Organized Health Care Education/Training Program
PROC: 10D17ZZ Extraction of Products of Conception, Retained, Via Natural or Artificial Opening (ICD-10-PCS; principal; 2021-04-16)
DX: O03.4 Incomplete spontaneous abortion without complication (principal)
CPT/HCPCS: 36415; 76817; 84702; 85025; 86850; A9270-GY; J1100; J1885; J2250; J2405; J2590; J2704; J2790; J3010; J7120; U0002

== ENCOUNTER 2023-04-03 04:42 | Inpatient (IN) | payer BC ==
[2023-04-03] MEDS ORDERED: Acetaminophen 325 MG Tab PO PRN ×2 (08:41→17:03)
[2023-04-03] MEDS ORDERED: Lidocaine 1% 30 ML SDV INJECT PRN (08:41)
[2023-04-03] MEDS ORDERED: Misoprostol 400 MCG (4 X 100 MCG TAB) RECTAL PRN (08:41)
[2023-04-03] MEDS ORDERED: fentaNYL 100 MCG/2 ML SDV IVPUSH PRN (08:41)
[2023-04-03] MEDS ORDERED: Methylergonovine 0.2 MG/1 ML Amp IM PRN (08:41)
[2023-04-03] MEDS ORDERED: Carboprost Tromethamine 250 MCG/1 ML Amp IM PRN (08:41)
[2023-04-03] MEDS ORDERED: Tranexamic Acid 1,000 MG in Sodium Chloride 0.9% 100 ML IV PRN (08:41)
[2023-04-03] MEDS ORDERED: Lactated Ringers 1,000 ML IV ONE (08:41)
[2023-04-03] MEDS ORDERED: Sodium Chloride 0.9% 10 ML Syringe FLUSH PRN (08:41)
[2023-04-03] MEDS ORDERED: Ondansetron 4 MG/2 ML SDV IVPUSH PRN (08:41)
[2023-04-03] MEDS ORDERED: Lactated Ringers 1,000 ML IV SCH (08:45)
[2023-04-03 09:02] LABS: HEMATOCRIT 37.9 % (37.0-47.0); HEMOGLOBIN 12.1 g/dL (12.0-16.0); MEAN CORPUSCULAR HEMOGLOBIN 28.9 pg (27.0-34.0); MEAN CORPUSCULAR HGB CONC 31.9 g/dL (33.0-35.0); MEAN CORPUSCULAR VOLUME 90.7 fL (80-100); RED BLOOD CELL COUNT 4.18 10^6/uL (4.2-5.4); WHITE BLOOD CELL COUNT,WBC 7.5 10^3/uL (5.0-10.0)
[2023-04-03] MEDS: Oxytocin/Normal Saline 30 UNIT/500 ML BAG IV SCH ×2 (09:19→18:55)
[2023-04-03] MEDS ORDERED: Bupivacaine 0.25% 10 ML SDV ONE (13:05)
[2023-04-03] MEDS ORDERED: fentaNYL 100 MCG/2 ML SDV ONE (13:05)
[2023-04-03] MEDS ORDERED: ePHEDrine 50 MG/ML SDV IVPUSH PRN (13:37)
[2023-04-03] MEDS ORDERED: Phenylephrine HCl In 0.9% NaCl 1 MG/10 ML Syringe IVPUSH PRN (13:37)
[2023-04-03] MEDS ORDERED: Ropivacaine 200 MG in Premix Bag 1 BAG EPIDUR SCH (13:45)
[2023-04-03] MEDS ORDERED: Benzocaine/Menthol 20%-0.5% Spray 78 GM Cannister TOP PRN (17:03)
[2023-04-03] MEDS ORDERED: Simethicone 80 MG Tab.Chew PO PRN (17:03)
[2023-04-03] MEDS ORDERED: Oxytocin 10 Units/1 ML SDV IM PRN (17:03)
[2023-04-03] MEDS ORDERED: Clindamycin in 0.9 % Sod Chlor 900 MG in Premix Bag 1 BAG IV ONE ×2 (19:56)
[2023-04-03] MEDS ORDERED: Witch Hazel Medicated Pads 100/Jar TOP PRN (20:30)
[2023-04-03] MEDS: Docusate Sodium 100 MG Cap PO PRN (20:36)
[2023-04-04] MEDS: Ibuprofen 800 MG Tab PO PRN ×2 (00:35→08:15)
[2023-04-04] MEDS: Docusate Sodium 100 MG Cap PO PRN (08:15)
[2023-04-04] MEDS ORDERED: Prenatal Multivitamin with Calcium/Folic Acid/Iron Tab PO SCH (09:00)
[2023-04-04] MEDS ORDERED: Bupivacaine 0.25% 10 ML SDV INJECT ONE (14:49)
[2023-04-04] MEDS ORDERED: fentaNYL 100 MCG/2 ML SDV EPIDUR ONE (14:49)
== END 2023-04-04 14:50 | disposition home or self-care (01) | DRG 560 ==
LOC: UNDOADMOB 08:39 → INTOOBSV 08:39 → DL.OB 08:39 → INTOOBSV 16:29 → OBSVTOIN 16:29 → DL.OB 16:35 → OBSVTOIN 16:35 → UNDODISIN 04-04 14:50
PROVIDERS: ADMIT Family Medicine; ATTEND Family Medicine
PROC: 10E0XZZ Delivery of Products of Conception, External Approach (ICD-10-PCS; principal; 2023-04-03)
PROC: 0KQM0ZZ Repair Perineum Muscle, Open Approach (ICD-10-PCS; 2023-04-03)
PROC: 3E0R3BZ Introduction of Anesthetic Agent into Spinal Canal, Percutaneous Approach (ICD-10-PCS; 2023-04-03)
PROC: 00HU33Z Insertion of Infusion Device into Spinal Canal, Percutaneous Approach (ICD-10-PCS; 2023-04-03)
PROC: 10907ZC Drainage of Amniotic Fluid, Therapeutic from Products of Conception, Via Natural or Artificial Opening (ICD-10-PCS; 2023-04-03)
DX: O24.420 Gestational diabetes mellitus in childbirth, diet controlled (principal); Z37.0 Single live birth; O26.873 Cervical shortening, third trimester; O99.02 Anemia complicating childbirth; Z28.9 Immunization not carried out for unspecified reason; Z3A.39 39 weeks gestation of pregnancy
CPT/HCPCS: 01967; 36415; 51701; 59409; 85027; 85461; 86592; 86850; 86900; 86901; A9270-GY; J2590; J2790; J3010; J3490; J7120